=== PATIENT | female | born 1980 | race Caucasian/White ===

== ENCOUNTER → 2020-08-15 | Outpatient (CLI) | payer OTHER | LOC: MC.RAD 13:20 | DX: Z12.31 Encounter for screening mammogram for malignant neoplasm of breast (principal); N63.20 Unspecified lump in the left breast, unspecified quadrant ==

== ENCOUNTER → 2020-08-23 | Outpatient (CLI) | payer OTHER | LOC: MC.RAD 13:51 | DX: N60.02 Solitary cyst of left breast (principal); N64.89 Other specified disorders of breast ==

== ENCOUNTER → 2021-10-15 | Outpatient (CLI) | payer OTHER | LOC: MC.RAD 10:00 | DX: Z12.31 Encounter for screening mammogram for malignant neoplasm of breast (principal) ==

== ENCOUNTER → 2022-11-27 | Outpatient (CLI) | payer OTHER | LOC: MC.RAD 09:26 | DX: Z12.31 Encounter for screening mammogram for malignant neoplasm of breast (principal) ==